=== PATIENT | female | born 1995 ===

== ENCOUNTER 2017-11-15 14:40 | Emergency (ER) | payer MEDICAID ==
[2017-11-15 14:50] VITALS: BP 118/71; PULSE 69; TEMP 97.3; O2SAT 99
--- NOTE | 2017-11-15 15:23 | RAD ---
Date of service: 11/15/2017 PROCEDURE: Left Thumb radiographs. HISTORY: injury COMPARISON: None. TECHNIQUE: AP radiograph of the left hand, as well as spot oblique and lateral images of thumb were obtained. FINDINGS: LEFT THUMB: Normal left thumb, without fracture or focal lesion. Remainder of the left hand (as seen on the AP view) grossly unremarkable. JOINTS: Normal. SOFT TISSUES: Normal. OTHER FINDINGS: None. IMPRESSION: Normal left thumb radiographs.
--- NOTE | 2017-11-15 15:23 | C.PDOC ---
History Of Present Illness 22 yo female presents to ED for evaluation of left thumb pain that gradually developed for past 1 month. Patient admits to lifting heavy boxes at work. Pain is localized over left thumb that worsens with movement. Denies any direct injury, weakness, numbness, or deformity to left hand. Time Seen by Provider: 11/15/17 14:46 Chief Complaint (Nursing): Upper Extremity Problem/Injury History Per: Patient History/Exam Limitations: no limitations Onset/Duration Of Symptoms: Days Current Symptoms Are (Timing): Still Present Past Medical History Reviewed: Historical Data, Nursing Documentation, Vital Signs Vital Signs: Last Vital Signs Temp 97.3 F L 11/15/17 14:48 Pulse 69 11/15/17 14:48 Resp 20 11/15/17 15:32 BP 118/71 11/15/17 14:48 Pulse Ox 99 11/15/17 15:28 Surgical History: No Surg Hx Family History: States: No Known Family Hx - Social History Hx Tobacco Use: No Hx Alcohol Use: No Hx Substance Use: No - Immunization History Hx Tetanus Toxoid Vaccination: No Hx Influenza Vaccination: No Hx Pneumococcal Vaccination: No Review Of Systems Except As Marked, All Systems Reviewed And Found Negative. Musculoskeletal: Positive for: Hand Pain (Pain to left thumb) Neurological: Negative for: Weakness, Numbness, Dizziness Physical Exam - Physical Exam Appears: Well, Non-toxic, No Acute Distress Skin: Normal Color, Warm, No Rash, No Ecchymosis Head: Normacephalic Eye(s): bilateral: PERRL Neck: Trachea Midline, No Midline Cervical Tenderness, No Paracervical Tenderness, Supple Chest: Symmetrical, No Deformity, No Tenderness Extremity: Normal ROM (Left hand, no neurovascular deficits), Tenderness (mild over thenar area left hand. NO skin changes.), Capillary Refill (less than 2sec to Left hand), No Deformity, No Swelling Pulses: Left Radial: Normal Neurological/Psych: Oriented x3, Normal Speech, Normal Motor, Normal Sensation, Normal Reflexes ED Course And Treatment O2 Sat by Pulse Oximetry: 99 (RA) Pulse Ox Interpretation: Normal - Other Rad Left thumb X-Ray: Interpreted by Me, Viewed By Me, Read By Radiologist Interpretation: (-) acute fx or dislocation Progress Note: On re-eval, pt is afebrile, hemodynamicaly stable. Left ahnd: Mild tenderness over thenar area of Left ahnd. FAROM, no neurovascular deficits , no deformity, no skin changes. Imaging-normal. THumb spica applied to Left hand. Pt advised and ref. to f/u with hand specialsit in 2-3 dyas for re-eavl. Disposition Counseled Patient/Family Regarding: Studies Performed, Diagnosis, Need For Followup - Disposition Referrals: Ezequiel Cr MD [Staff Provider] - Disposition: HOME/ ROUTINE Disposition Time: 15:20 Condition: STABLE Additional Instructions: LIGHT DUTY TO LEFT HAND IBUPROFEN FOR NEED FOR PAIN FOLLOW UP WITH HAND SPECIALISTS IN2 -3 DAYS FOR RE-EVALUATION. RETURN TO ED IF ANY WORSENING OR NEW CHANGES. 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 - Scribe Statement The provider has reviewed the documentation as recorded by the Scribe Jason Castillo All medical record entries made by the Scribe were at my direction and personally dictated by me. I have reviewed the chart and agree that the record accurately reflects my personal performance of the history, physical exam, medical decision making, and the department course for this patient. I have also personally directed, reviewed, and agree with the discharge instructions and disposition.
[2017-11-15 15:33] VITALS: RESP 20
== END 2017-11-15 15:32 | disposition home or self-care (01) ==
LOC: C.ER 14:40
DX: S63.602A Unspecified sprain of left thumb, initial encounter (principal); X50.9XXA Other and unspecified overexertion or strenuous movements or postures, initial encounter